=== PATIENT | female | born 1985 | race Caucasian/White ===

== ENCOUNTER 2016-10-13 09:13 | Emergency (ER) | payer BC ==
[~2016-10-13] VITALS: Ht 157.5 cm; Wt 87.1 kg
[2016-10-13 09:16] VITALS: Ht 157.5 cm; Wt 87.1 kg
--- NOTE | 2016-10-13 09:44 | ERD ---
ER Documentation Chief Complaint Date/Time DATE: 10/13/16 TIME: 09:39 Chief Complaint right ear possible fb HPI Patient is a 31-year-old female who presents to the emergency department with concerns of a right ear foreign body. Patient states that she was cleaning her house due to moving yesterday. Patient states that she woke up this morning at approximately 5 AM this morning with a "odd sensation" in her right ear. Patient states it "sounded like something was moving in her ear." Patient denies any pain. Patient denies any active bleeding or discharge. Patient denies any fevers, chills, nausea, vomiting, shortness of breath, chest pain, abdominal pain. ROS All systems reviewed and are negative except as per history of present illness. Physical Exam Vitals Vital Signs Date Time Temp Pulse Resp B/P Pulse Ox O2 Delivery O2 Flow Rate FiO2 10/13/16 09:16 98.1 99 18 115/77 99 Physical Exam GENERAL: Well-developed, well-nourished female. Appears in no acute distress. HEAD: Normocephalic, atraumatic. No deformities or ecchymosis. EYE: Pupils equal, round, and reactive to light. EOMs intact. No conjunctival erythema. No scleral icterus. No eye discharge. ENT: External ear without any masses or tenderness. Auditory canals clear bilaterally. TM visualized bilaterally, non-erythematous, non-bulging. No signs of foreign body in her right ear canal. Nasal mucosa pink with no discharge. Oropharynx is pink without any tonsillar erythema or exudates. No uvula deviation. No kissing tonsils. No Bilateral mastoid tenderness. NECK: Supple. No lymphadenopathy or thyromegaly. No meningismus. No JVD. No bruits. Trachea midline. LUNG: Clear to auscultation bilaterally. No rhonchi, wheezing, rales or coarse breath sounds. HEART: Regular rate and rhythm. No murmurs, rubs or gallops. EXTREMITIES: Equal pulses bilaterally. No peripheral clubbing, cyanosis or edema. No unilateral leg swelling. NEUROLOGIC: Alert and oriented to person, place and time. Moving all four extremities. 5/5 strength in all extremities. Normal speech. Steady gait. SKIN: Normal color. Warm and dry. No rashes or lesions. Procedures/MDM MEDICAL DECISION MAKING: This is a 31-year-old female who presents with concerns of a right ear foreign body. Vital signs were reviewed. Patient was afebrile. Patient was not hypoxic. Ear exam was normal. No foreign bodies are noted by myself. Patient was also examined by a second ED 2 provider who also did not any ear foreign bodies. Given these findings, the patients presentation is most consistent with ear pain. I have a much lower clinical suspicion for otitis externa, acute otitis media, tympanic membrane perforation, mastoiditis, otic barotrauma, mastoiditis , foreign body, cerumen impaction. DISCHARGE: At this time, patient is stable for discharge and outpatient management. I have instructed the patient to follow-up with his/her primary care physician in 1-2 days. I have discussed with the patient the possibility of needing to see ENT specialist for further workup and diagnostic studies if the pain persists. I have instructed the patient to promptly return to the ER at any time for any new or worsening symptoms including increased pain, fever, swelling, discharge or hearing loss. The patient and/or family expressed understanding of and agreement with this plan. All questions were answered. Home care instructions were provided. Departure Diagnosis: Primary Impression: Right ear pain Condition: Stable Patient Instructions: Earache W/O Infection (Adult) Referrals: JOSE LUNDY MD, HAYWARD L. M.D. LANDMAN, MICHAEL D MD [facility] YOU HAVE RECEIVED A MEDICAL SCREENING EXAM AND THE RESULTS INDICATE THAT YOU DO NOT HAVE A CONDITION THAT REQUIRES URGENT TREATMENT IN THE EMERGENCY DEPARTMENT. FURTHER EVALUATION AND TREATMENT OF YOUR CONDITION CAN WAIT UNTIL YOU ARE SEEN IN YOUR DOCTORS OFFICE WITHIN THE NEXT 1-2 DAYS. IT IS YOUR RESPONSIBILITY TO MAKE AN APPOINTMENT FOR FOLOW-UP CARE. IF YOU HAVE A PRIMARY DOCTOR --you should call your primary doctor and schedule an appointment IF YOU DO NOT HAVE A PRIMARY DOCTOR YOU CAN CALL OUR PHYSICIAN REFERRAL HOTLINE AT IF YOU CAN NOT AFFORD TO SEE A PHYSICIAN YOU CAN CHOSE FROM THE FOLLOWING [facility] [address] [facility]. [facility] [address] [facility]. [facility] [address] [facility] [address] [facility]. [facility] [address] [facility]. [facility] [address] [facility]. [facility] YOU HAVE RECEIVED A MEDICAL SCREENING EXAM AND THE RESULTS INDICATE THAT YOU DO NOT HAVE A CONDITION THAT REQUIRES URGENT TREATMENT IN THE EMERGENCY DEPARTMENT. FURTHER EVALUATION AND TREATMENT OF YOUR CONDITION CAN WAIT UNTIL YOU ARE SEEN IN YOUR DOCTORS OFFICE WITHIN THE NEXT 1-2 DAYS. IT IS YOUR RESPONSIBILITY TO MAKE AN APPOINTMENT FOR FOLOW-UP CARE. IF YOU HAVE A PRIMARY DOCTOR --you should call your primary doctor and schedule and appointment IF YOU DO NOT HAVE A PRIMARY DOCTOR YOU CAN CALL OUR PHYSICIAN REFERRAL HOTLINE AT . IF YOU CAN NOT AFFORD TO SEE A PHYSICIAN YOU CAN CHOSE FROM THE FOLLOWING [facility] INSTITUTIONS: [facility] [address] [place] [address] [facility] [address] [place] [address] [facility] [address] [place] [address] Additional Instructions: No foreign bodies noted in ear. Call your primary care doctor TOMORROW for an appointment during the next 1-2 days.See the doctor sooner or return here if your condition worsens before your appointment time. Return to the ED for any new or worsening symptoms including pain, fever, chills , nausea or vomiting. MICHEAL BACON PA-C Oct 13, 2016 09:43
== END 2016-10-13 10:05 | disposition home or self-care (01) ==
LOC: FTE 09:13
DX: H92.01 Otalgia, right ear (principal)
CPT/HCPCS: 99282

== ENCOUNTER 2018-04-05 15:45 | Emergency (ER) | END 2018-04-05 17:00 | disposition home or self-care (01) ==

== ENCOUNTER 2019-05-09 17:40 | Emergency (ER) | payer SELFPAY ==
[~2019-05-09] VITALS: Ht 167.6 cm; Wt 78.4 kg
[~2019-05-09 17:40] MED LIST: IBUP-1542 PO
[2019-05-09 17:42] VITALS: BP 109/68; PULSE 79; RESP 16; Ht 167.6 cm; Wt 78.4 kg
== END 2019-05-09 22:46 | disposition left against medical advice (07) ==
LOC: FTE 17:40
DX: Z53.21 Procedure and treatment not carried out due to patient leaving prior to being seen by health care provider (principal)

== ENCOUNTER → 2019-05-11 | Outpatient (CLI) | payer BC | END | disposition home or self-care (01) | LOC: LAB 09:41 | PROVIDERS: ATTEND Obstetrics & Gynecology | DX: O20.0 Threatened abortion (principal); Z3A.00 Weeks of gestation of pregnancy not specified | CPT/HCPCS: 84144; 84702 ==

== ENCOUNTER → 2019-05-15 | Outpatient (CLI) | payer BC | END | disposition home or self-care (01) | LOC: LAB 09:05 | PROVIDERS: ATTEND Obstetrics & Gynecology | DX: O20.0 Threatened abortion (principal) | CPT/HCPCS: 84702 ==